=== PATIENT | female | born 1960 | race Caucasian/White ===

== ENCOUNTER 2024-02-28 10:59 | Day surgery (SDC) | payer OTHER, SELFPAY ==
[2024-02-14 10:09] VITALS: BMI 47.0
[2024-02-14 11:02] LABS: % Basophils 0.4 % (0-2); % Eosinophils 0.7 % (0-6); % Immature Granulocytes 0.4 % (0-0.5); % Lymphocytes 19.8 % (20.5-51.1); % Monocytes 7.3 % (1.7-9.3); % Neutrophils 71.4 % (42.2-75.2); Absolute Lymphocytes 1.1 10^3/uL (1.2-3.4); Absolute Monocytes 0.4 10^3/uL (0.1-0.6); Hematocrit 40.1 % (37.0-47.0); Hemoglobin 13.7 g/dL (12.0-16.0); Mean Corp Hgb Conc. 34.2 g/dL (33.0-37.0); Mean Corpuscular Hgb 31.1 pg (27.0-31.0); Mean Corpuscular Volume 91.1 fL (81.0-99.0); Mean Platelet Volume 10.5 fL (7.4-10.4); Nucleated Red Blood Cells % 0 %; Platelet Count 230 10^3/uL (130-400); Red Cell Dist. Width 12.3 % (11.5-14.5); White Blood Cell Count 5.6 10^3/uL (4.8-10.8)
[2024-02-14 12:20] LABS: ALT (SGPT) 23 U/L (0-35); AST (SGOT) 21 U/L (14-36); Albumin 4.1 g/dl (3.5-5.0); Alkaline Phosphatase 92 U/L (38-126); Blood Urea Nitrogen 19 mg/dl (7-17); Calcium 9.5 mg/dl (8.4-10.2); Carbon Dioxide 31 mmol/L (22-30); Chloride 105 mmol/L (98-107); Estimated Creatinine Clearance > 125 ml/min; Glucose 129 mg/dl (70-99); Magnesium 2.1 mg/dl (1.6-2.3); Potassium 4.2 mmol/L (3.5-5.1); Sodium 147 mmol/L (135-145); Total Bilirubin 0.8 mg/dl (0.2-1.3); Total Protein 6.8 g/dl (6.3-8.2); eGFR > 60.00
[2024-02-28] VITALS (10 sets, daily range): BP systolic 93–123; BP diastolic 51–81; BMI 46.7
[2024-02-28 12:02] LABS: Glucose - Point of Care 126 mg/dl (70-99)
--- NOTE | 2024-02-28 15:36 | ITS.CL.PACE ---
Percussion Instrument Tuner - Pacemaker Implant
Pacemaker Implant
Procedure Report:
Date of Procedure: February 28, 2024
Patient : 1960
Procedures: Biventricular pacemaker implantation
Indication: Ejection fraction 38 to 40% with wide left bundle branch block and class III heart failure symptoms with heart failure hospitalizations on guideline directed medical therapy for greater than 3 months.
�
Implants:
Pulse Generator: Medtronic; Model# W-4 TR 01; Serial#�[employer] [id number]
Atrial Lead: Medtronic: Model# 4574; Serial# [id number]
Right Ventricular Lead: Medtronic; Model# 4074; Serial# [id number]
Left Ventricular Lead: Medtronic; Model# 4798; Serial# [id number]
�
Technique: The patient was prepped and draped in the usual fashion. Local anesthetic was applied to the left prepectoral subcutaneous tissue. A 4 inch incision was made. The left axillary vein was accessed��without difficulty. A subcutaneous pocket
was CREATED. Hemostasis was excellent. A right heart catheterization was performed. The leads were introduced with hemostatic peel away introducer sheaths. The right ventricular lead was placed at the right ventricular apex. The atrial lead was
placed in the right atrial appendage. The coronary sinus was accessed with the aid of the Attain system. The left ventricular lead was placed in the high lateral. 10 volt pacing did not capture the diaphragm. The leads were secured to the pectoralis
muscle and fascia. The leads were appropriately attached to the device. The pocket was irrigated with antibiotic solution. The device and leads were placed in the pocket and the device was secured to pectoralis muscle and facia. The incision was
closed with absorbable sutures. The estimated blood loss was minimal. There were no complications. Device based testing was performed as described below. IV contrast total: 5 cc.
�
System Analysis:
RA lead: P: 1.5 mV; Threshold: 1.5 V @ 0.5 ms; Impedance: 476 ohms.
RV lead: R: 15 mV; Threshold: 0.4 V @ 0.5 ms; Impedance: 790 ohms.
LV lead: R: 18 mV; Threshold: 0.75 V @ 0.5 ms; Impedance: 680 ohms.
�
Final Programming: Gilberto: DDDR 60-120.
�
Conclusion: Biventricular pacemaker implantation
�
Recommendation: Routine post BiV pacemaker care.
�
cc: Dr. Luis santos
�
--- NOTE | 2024-02-28 16:00 | PTCARENOTE ---
Rec'd pt from EP lab at 15:30 after permenant pacemaker placement. Pt with LCW Aquacel dressing CDI and left arm immboilzer on. Pt agreed not to raise arm above shoulder level. VSS, pt in V paced rhythm, and AAAO*3. Pt groggy after procedure but
easily arousable. Pt resting with call colin in reach.
--- NOTE | 2024-02-28 16:24 | CM ---
Chart reviewed. Patient is independent of ADLS, lives with her in a split level house, 0 ROSIE, 0 DME. Plan is for the patient to return home. CM to follow
[2024-02-28] MEDS: ENTRESTO 24 MG/26 MG 1 TAB PO (19:41)
[2024-02-28] MEDS: ANCEF 5 IV (19:41)
[2024-02-29 04:12] VITALS: BP 99/55
[2024-02-29] MEDS: ANCEF 5 IV (04:13)
--- NOTE | 2024-02-29 04:42 | PTCARENOTE ---
Pt with new pacemaker in left ant chest. drsg dry and intact no active bleeding or hematoma present. arm remains in immobilizer. Pt aware of limb restrictions. pt reports having slept with own cpap on. Some soreness noted but pt does not wish to
take Tylenol
[2024-02-29 04:45] VITALS: BMI 47.0
[2024-02-29 04:51] LABS: Hemoglobin 12.9 g/dL (12.0-16.0); Mean Corp Hgb Conc. 34.9 g/dL (33.0-37.0); Mean Corpuscular Hgb 30.8 pg (27.0-31.0); Mean Corpuscular Volume 88.3 fL (81.0-99.0); Mean Platelet Volume 10.8 fL (7.4-10.4); Platelet Count 200 10^3/uL (130-400); Red Blood Cell Count 4.19 10^6/uL (4.20-5.40); Red Cell Dist. Width 12.2 % (11.5-14.5); White Blood Cell Count 7.4 10^3/uL (4.8-10.8)
[2024-02-29 05:13] LABS: Blood Urea Nitrogen 21 mg/dl (7-17); Calcium 9.2 mg/dl (8.4-10.2); Carbon Dioxide 23 mmol/L (22-30); Chloride 105 mmol/L (98-107); Estimated Creatinine Clearance > 125 ml/min; Glucose 155 mg/dl (70-99); Magnesium 1.9 mg/dl (1.6-2.3); Potassium 4.1 mmol/L (3.5-5.1); Sodium 140 mmol/L (135-145); eGFR > 60.00
[2024-02-29 07:43] VITALS: BP 101/61
--- NOTE | 2024-02-29 08:14 | PTCARENOTE ---
Assumed care of pt from prev nsg shift; Pt AAOx3 w/no c/o CP or SOB. Pt c/o 'mild' 2/10 L chest wall pain at the PPM insertion site. Pt declining pain meds at this time. Pt's VS stable w/HR in the 70's & BP this AM 101/61. Pt's L chest wall pacer
site w/dressing C/D/I w/no signs or symptoms of bleeding or hematoma. Pt OOB in chair awaiting breakfast & anticipating D/C this AM. Plan of care ongoing.
[2024-02-29] MEDS: ENTRESTO 24 MG/26 MG 1 TAB PO (08:26)
[2024-02-29] MEDS: ASPIR LOW (ENTERIC COATED) 81 MG PO (08:26)
--- NOTE | 2024-02-29 08:37 | PTCARENOTE ---
Pt requesting to take her own Jardiance at home after D/C today. Pt reports 'it causes freq urination & wants to wait until she is home'. Pt also did not want to take substitution of Farxiga.
--- NOTE | 2024-02-29 09:01 | W.PN.CARDCBS ---
Addendum entered and electronically signed by Roberto Carpio MD 02/29/24 09:37:
Patient seen and examined
Agree with SOOT BLOWER note
Agree with SOOT BLOWER plan
Exam:
Agree with SOOT BLOWER note and assessment
IMPRESSION:
s/p Bi-V PPM implant, 02/28/24
Chronic systolic HFrEF 38-40%
NICM
LBBB
Bicuspid AV w/moderate
HLD, statin intolerant
Borderline DM
PLAN:
Tele- SUSPECT ARTIST w/underlying SR, PVC w/frequent 3-7bt NSVT
Device site stable
Post CXR w/stable lead position, no pneumothorax
activity limitations reviewed
Continue jardiance, entresto
intol of BB due to low bp and prior s/e dizziness, lightheadedness
Incision check at [facility] in [address] Gaytan thereafter
Home today
Original Note:
Today's Communication / Plan
-
Activity restrictions reviewed
incision check 1 week at [facility]
home today
Impression / Plan
-
PCP: Roberto Prieto MD
CDY: Luis Gaytan MD
63 y/o, PMH sig for chronic systolic HFrEF 38-40%, LBBB, nonischemic cardiomyopathy with recurrent hospitalizations for acute HF, on max tonya GDMT.
IMPRESSION:
s/p Bi-V PPM implant, 02/28/24
Chronic systolic HFrEF 38-40%
NICM
LBBB
Bicuspid AV w/moderate
HLD, statin intolerant
Borderline DM
PLAN:
Tele- SUSPECT ARTIST w/underlying SR, PVC w/frequent 3-7bt NSVT
Device site stable
Post CXR w/stable lead position, no pneumothorax
activity limitations reviewed
Continue jardiance, entresto
intol of BB due to low bp and prior s/e dizziness, lightheadedness
Incision check at [facility] in [address] Gaytan thereafter
Home today
Progress Note - Community Service Aide
Subjective
Date of Service: February 29, 2024
Denies cp/palps/dyspnea
device site tender with mild pain in shoulder
oob ambulating
Objective
Labs:
02/29/24 04:25
02/29/24 04:25
Labs
Hgb 12.9 g/dL (12.0-16.0) 02/29/24 04:25
Hct 37.0 % (37.0-47.0) 02/29/24 04:25
Plt Count 200 10^3/uL (130-400) 02/29/24 04:25
Sodium 140 mmol/L (135-145) 02/29/24 04:25
Potassium 4.1 mmol/L (3.5-5.1) 02/29/24 04:25
BUN 21 mg/dl (7-17) H 02/29/24 04:25
Creatinine 0.6 mg/dL (0.6-1.0) 02/29/24 04:25
Glucose 155 mg/dl (70-99) H 02/29/24 04:25
Vital Signs and I&O:
Vital Signs
Temp Pulse Resp BP Pulse Ox
98.1 F 73 16 101/61 96
02/29/24 07:40 02/29/24 08:00 02/29/24 07:40 02/29/24 07:43 02/29/24 07:40
Vital Signs
Temp Pulse Resp BP Pulse Ox
98.1 F 73 16 101/61 96
02/29/24 07:40 02/29/24 08:00 02/29/24 07:40 02/29/24 07:43 02/29/24 07:40
Intake & Output
02/27/24 02/28/24 02/29/24 03/01/24
06:59 06:59 06:59 06:59
Intake Total 720 / 720
Balance 720 / 720
Physical Exam
Physical Exam
AAOx3, MAEE 10/22
RRR S1 S2 no murmurs
CTA bilat, nonlabored
Left ACW w/aquacel dressing CDI, no ht/bleeding, mildly tender to palpation
Soft abd, + bs
bilat extremities w/palpable distal pulses, no edema
[2024-02-29 09:27] LABS: Glycohemoglobin (HgbA1c) 6.8 % (4.0-5.6)
--- NOTE | 2024-02-29 10:03 | W.DS.TRANS ---
DC Summary - Car Changer
-
Discharge Instructions:
Discharge Diagnosis/Procedures BiV Pacemaker implantation
Diet 2 Gram Sodium,Restrict fluids to 48 oz
Driving Restrictions No driving for 1 week
Bathing Restrictions OK to Shower
Specialty Instructions Weigh Daily
Instructions:
Stand-Alone Forms: DC Inst - Implanted Device
Changes to Home Medications: No
Discharge Medications:
DC Medications w/original date entered in [employer] [facility]
aspirin 81 mg tablet,delayed release 81 mg PO DAILY 02/10/24
empagliflozin 10 mg tablet (Jardiance) 10 mg PO DAILY 02/10/24
sacubitril 24 mg-valsartan 26 mg tablet (Entresto) 1 tab PO BID 02/10/24
Home Medication Changes
Pending Results: No
--- NOTE | 2024-02-29 10:18 | PTCARENOTE ---
Pt's IV line & telemetry D/C'd. Pt discharged to home w/spouse providing transportation w/personal belongings including cell phone & syrup mixer assistant.
== END 2024-02-29 10:18 | disposition home or self-care (01) ==
LOC: CATH 10:59
PROVIDERS: Nurse Practitioner Adult Health; ATTENDING PHYSICIAN Internal Medicine Cardiovascular Disease; FAMILY PHYSICIAN Internal Medicine; OTHER PHYSICIAN Internal Medicine Cardiovascular Disease
DX: I50.22 Chronic systolic (congestive) heart failure (principal); I42.9 Cardiomyopathy, unspecified; I44.7 Left bundle-branch block, unspecified; Z79.82 Long term (current) use of aspirin; Z88.8 Allergy status to other drugs, medicaments and biological substances; I35.0 Nonrheumatic aortic (valve) stenosis; E78.5 Hyperlipidemia, unspecified
CPT/HCPCS: 33208; 33225; 36415; 71045; 80048; 80053; 82962; 83036; 83735; 85025; 85027; 86803; 93005; C1730; C1769; C1887; C1892; C1898; C1900; C2621; Q9967